=== PATIENT | male | born 1970 | race Caucasian/White ===

== ENCOUNTER → 2018-03-15 | Outpatient (CLI) | payer OTHER ==
--- NOTE | 2018-03-15 22:57 | CT ---
EXAMINATION TYPE: CT chest wo con DATE OF EXAM: 03/15/2018 COMPARISON: None at this institution. HISTORY: Spot on Lung seen on Prior exam done at [facility]. No Symptoms being felt by patient. CT DLP: 473.60 mGycm. Automated Exposure Control for Dose Reduction was Utilized. TECHNIQUE: CT scan of the thorax is performed without IV contrast. FINDINGS: LUNGS: Laterally in the left upper lobe there is 8 x 5 mm subpleural nodule or nodular consolidation axial image 17. In the right lower lobe laterally there is 5 mm groundglass nodule axial image 40. T here is no pleural effusion or pneumothorax seen. The tracheobronchial tree is patent. MEDIASTINUM: Lack of IV contrast is noted to limit evaluation for mediastinal and especially hilar ad enopathy. There are no definitive greater than 1 cm hilar or mediastinal lymph nodes. No significan t pericardial effusion is seen. Cardiomegaly is present. 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 Hounsfield units average under 0. Ascending aorta measures up to 3.5 cm in diameter. There is nodular prominence lower lobe right thyr oid coronal image 42 favoring isodense nodule measuring over 1 cm. Follow-up advised. OTHER: Please refer to same day CT abdomen report for complete details on abdomen. IMPRESSION: 1. 2 small nodules noted as detailed above. Appropriate follow-up advised as per Fleischner Society r ecommendations. 2. Advise thyroid ultrasound follow-up for suspected greater than 1 cm lower pole right thyroid nodul e. 3. Cardiomegaly somewhat prominent for patient's chronologic age. Follow-up advised if this is not kn own finding.
--- NOTE | 2018-03-16 08:28 | CT ---
EXAMINATION TYPE: CT abdomen wo/w con DATE OF EXAM: 03/15/2018 COMPARISON: None HISTORY: Abnormal Findings on other imaging done at [facility]. Attention Adrenal Glands. CT DLP: 1924.3 mGycm CONTRAST: CT scan of the abdomen and pelvis is performed with Oral Contrast and with IV Contrast, patient injec anel with 100 mL of Isovue 300. FINDINGS: LUNG BASES-: No visible nodule. No infiltrate. Mild cardiomegaly noted. LIVER/GB: No calcified gallstones. There is mild fatty hepatic infiltration. No space occupying he patic lesion. Biliary tree is of normal caliber. PANCREAS: No inflammation. No distinct mass. SPLEEN: No splenic enlargement. No lesion seen. ADRENALS: No nodule. No thickening. KIDNEYS/BLADDER: No hydronephrosis. No nephrolithiasis. No distinct renal mass. Urinary bladder g rossly unremarkable. BOWEL: Normal bowel caliber. No inflammation. LYMPH NODES: No greater than 1cm abdominal or pelvic lymph nodes are appreciated. AORTA: No significant abnormality. OSSEOUS STRUCTURES: No significant abnormality is seen. OTHER: No significant additional abnormality is seen. IMPRESSION: 1. No adrenal pathology identified. 2. Mild hepatic steatosis. 3. Mild cardiomegaly.
== END ==
LOC: RADCTMAIN 14:30
PROVIDERS: ATTEND Physician Assistant
DX: I51.7 Cardiomegaly (principal); R91.8 Other nonspecific abnormal finding of lung field
CPT/HCPCS: 71250; 74170; Q9967

== ENCOUNTER → 2018-04-15 | Outpatient (CLI) | payer OTHER ==
--- NOTE | 2018-04-16 07:06 | US ---
EXAMINATION TYPE: US thyroid st tissue head/neck DATE OF EXAM: 04/15/2018 COMPARISON: ct 2018 CLINICAL HISTORY: R93.89 Abnormal findings on diagnostic imaging of. GLAND SIZE: Right Lobe: 5.1 x 1.9 x 2.0 cm Overall Parenchyma: homogenous Left Lobe: 4.3 x 1.6 x 1.6 cm Overall Parenchyma: homogeneous Isthmus Thickness: 0.3 cm NODULES RIGHT: # of nodules measured on right: 1 1. 0.7 X 0.4 x 0.5 cm mixed nodule at the mid pole with well-defined margins; . This nodule is wid er than tall and shows no intranodular vascularity. Prior size: no prior LEFT: # of nodules measured on left: 0 ISTHMUS: # of nodules measured in the isthmus: 0 Bilateral neck scanned, no evidence of lymphadenopathy. IMPRESSION: Subcentimeter nonspecific nodule right thyroid lobe.
== END ==
LOC: RADUSWWP 16:45
PROVIDERS: ATTEND Physician Assistant
DX: E04.1 Nontoxic single thyroid nodule (principal)
CPT/HCPCS: 76536

== ENCOUNTER → 2018-04-26 | Outpatient (CLI) | payer OTHER ==
--- NOTE | 2018-04-26 08:27 | CT ---
EXAMINATION TYPE: CT chest wo con DATE OF EXAM: 04/26/2018 COMPARISON: 03/15/2018 HISTORY: 48-year-old male Follow up to prior abnormal CT TECHNIQUE: Contiguous axial scanning of the chest without IV contrast. Coronal and sagittal reconstru ctions performed. CT DLP: 421.2 mGycm Automated exposure control for dose reduction was used. FINDINGS: Heart borderline to mildly enlarged without pericardial effusion. Ascending aorta is ectatic at 3.6 cm. Conventional arch vessel branching anatomy. Scattered nonenlarged mediastinal lymph nodes are present, mildly enlarged in the AP window region me asuring 1.3 cm now versus 1.7 cm, previously. 1 cm in the right pericardiac region, unchanged from pr ior. No progressive lymphadenopathy seen allowing for noncontrast technique which limits assessment o f the hilar structures. Evaluation of the lungs redemonstrates 8 mm peripheral left upper lobe pulmonary nodule, axial image 14 with adjacent tree-in-bud opacities. Also redemonstrated is the 7 mm peripheral right basilar pulmonary nodule with also has a somewhat tr ee-in-bud appearance. No consolidation or pleural effusion. Small hiatal hernia. Fatty infiltration of the liver demonstrated by low attenuation. Small anterior splenule. Bones: No osseous destructive process. IMPRESSION: 1. A COUPLE PULMONARY NODULES MEASURING UP TO 8 MM ARE UNCHANGED FOR JUST OVER ONE MONTH. A 6 MONTH F OLLOW-UP RECOMMENDED FOR CONTINUED SURVEILLANCE. 2. THESE HAVE A SOMEWHAT TREE-IN-BUD APPEARANCE AND MAY REPRESENT INFLAMMATORY SMALL AIRWAYS IMPACTIO N SUCH FROM BRONCHIOLITIS. 3. SOME MEDIASTINAL LYMPH NODES ARE EITHER STABLE OR SLIGHTLY SMALLER MEASURING UP TO 1.3 CM IN THE A P WINDOW. THESE CAN ALSO BE REASSESSED AT FOLLOW-UP. 4. SMALL HIATAL HERNIA AND HEPATIC STEATOSIS. 5. BORDERLINE HEART SIZE REDEMONSTRATED.
== END | disposition home or self-care (01) ==
LOC: RADCTMAIN 07:19
PROVIDERS: ATTEND Physician Assistant Medical
DX: R91.8 Other nonspecific abnormal finding of lung field (principal)
CPT/HCPCS: 71250

== ENCOUNTER → 2018-06-09 | Outpatient (CLI) | payer OTHER ==
--- NOTE | 2018-06-09 15:30 | CT ---
EXAMINATION TYPE: CT chest wo con DATE OF EXAM: 06/09/2018 COMPARISON: 04/26/2018 HISTORY: Follow up for lung nodules CT DLP: 622 mGycm, Automated exposure control for dose reduction was used. CONTRAST: Performed injected with 0 mL of Isovue 300. TECHNIQUE: Axial images were obtained at 5 mm thick sections. Reconstructed images are reviewed on [employer] computer in the coronal plane. FINDINGS: Several small nodules within the periphery of the right lower lobe. Series 3 image 40. Largest measur es 0.7 cm which is stable. There is a 0.5 cm nodule within the periphery of the right midlung. Series 3 image 31. Multiple small peripheral nodules are the left upper lobe the largest measuring 0.6 cm. Series 3 image 15. There are additional punctate scattered tiny 1 to 2 mm nodules present bilaterally . No enlarged mediastinal or hilar adenopathy is evident. There are some scattered nonenlarged lymph n odes within the mediastinum. These appear diminished in size from comparison The ascending aorta diam eter at the level of the main pulmonary artery is 3.8 cm. The main pulmonary artery diameter at the bifurcation is 2.[address] sections are obtained through the upper abdomen. Abdomen is essentially unremarkable. IMPRESSIONS: 1. Multiple bilateral nodules, stable from comparison April 26, 2018. Follow-up exam in 3 months is recommended.
== END | disposition home or self-care (01) ==
LOC: RADCTMAIN 14:17
DX: R91.8 Other nonspecific abnormal finding of lung field (principal)
CPT/HCPCS: 71250

== ENCOUNTER 2020-06-05 15:44 | Emergency (ER) | payer OTHER ==
[2020-06-05 16:04] VITALS: BP 218/144; PULSE 73; RESP 16; TEMP 98.6
[2020-06-05] MEDS ORDERED: AMOXIC-POT CLAV 875-125MG 1 EACH TAB PO STA (16:19)
--- NOTE | 2020-06-05 16:20 | ED ---
Animal Bite HPI - General Chief Complaint: Animal Bite Stated Complaint: dog bite Time Seen by Provider: 06/05/20 16:10 Source: patient Mode of arrival: ambulatory Limitations: no limitations - History of Present Illness Initial Comments: 50-year-old male presents to the emergency department with chief complaint of a dog bite. States this is his dog but it is not vaccine it. States the dog is only few weeks old. His tetanus is up-to-date. Patient reports the bite site is on the right fourth digit. Patient reports minimal pain and has full range of motion of finger. Denies any numbness or tingling. - Related Data Previous Rx's Medication Instructions Recorded Amoxicillin/Potassium Clav 1 tab PO Q12HR #20 tab 06/05/20 [Augmentin 875-125 Tablet] Allergies Allergy/AdvReac Type Severity Reaction Status Date / Time No Known Allergies Allergy Verified 06/05/20 16:01 Review of Systems ROS Statement: Those systems with pertinent positive or pertinent negative responses have been documented in the HPI. ROS Other: All systems not noted in ROS Statement are negative. Past Medical History Past Medical History: Hypertension History of Any Multi-Drug Resistant Organisms: None Reported Past Surgical History: No Surgical Hx Reported Past Psychological History: No Psychological Hx Reported Smoking Status: Never smoker Past Alcohol Use History: None Reported Past Drug Use History: None Reported General Exam Limitations: no limitations General appearance: alert, in no apparent distress Head exam: Present: atraumatic, normocephalic, normal inspection Eye exam: Present: normal appearance, PERRL, EOMI Pupils: Present: normal accommodation ENT exam: Present: normal exam, normal oropharynx, mucous membranes moist Neck exam: Present: normal inspection, full ROM Respiratory exam: Present: normal lung sounds bilaterally. Absent: respiratory distress Cardiovascular Exam: Present: regular rate, normal rhythm, normal heart sounds Extremities exam: Present: full ROM, tenderness (Mild tenderness at the puncture wound site), normal capillary refill. Absent: normal inspection (Superficial Puncture wound to the palmar aspect of the right fourth digit.) Back exam: Present: normal inspection, full ROM Neurological exam: Present: alert, oriented X3 Psychiatric exam: Present: normal affect, normal mood Skin exam: Present: warm, dry, intact, normal color Course Vital Signs 06/05/20 16:01 Temperature 98.6 F Pulse Rate 73 Respiratory 16 Rate Blood Pressure 218/144 O2 Sat by Pulse 98 Oximetry Medical Decision Making - Medical Decision Making 50-year-old male presents to the emergency department with a chief complaint of a dog bite. Patient was offered rabies prophylaxis, he declined. Patient started on Augmentin emergency department. Will be discharged with 10 day course of Augmentin. The puncture site was superficial and does not affect the range of motion of his finger. He is otherwise neurovascularly intact. Return parameters discussed the patient was understanding and agreeable. Case discussed with Dr. Hancock. Disposition Clinical Impression: Bite by animal, Dog bite Disposition: HOME SELF-CARE Condition: Stable Instructions (If sedation given, give patient instructions): Animal Bite (ED) Additional Instructions: Take prescribed medication as directed. Please return to the Emergency Department if symptoms worsen or any other concerns. Prescriptions: Amoxicillin/Potassium Clav [Augmentin 875-125 Tablet] 1 tab PO Q12HR #20 tab Is patient prescribed a controlled substance at d/c from ED?: No Referrals: [facility],Clinic [Primary Care Provider] - 1-2 days Time of Disposition: 16:20
== END 2020-06-05 16:27 | disposition home or self-care (01) ==
LOC: EC 15:44
DX: S61.236A Puncture wound without foreign body of right little finger without damage to nail, initial encounter (principal); W54.0XXA Bitten by dog, initial encounter
CPT/HCPCS: 99283

== ENCOUNTER → 2020-12-06 | Outpatient (CLI) | payer OTHER ==
--- NOTE | 2020-12-06 14:13 | CONS ---
CONSULTATION DATE OF SERVICE: 12/06/2020 50-year-old gentleman has been evaluated in Sleep Center for possible obstructive sleep apnea-hypopnea syndrome and significant excessive daytime sleepiness. HISTORY OF PRESENT ILLNESS/SLEEP WAKE EVALUATION: SLEEP SCHEDULE: Patient's usual sleep schedule on weekdays varies and he gets up around 6:30 a.m. On weekends he goes to bed around 1:30 am and gets up around 6:45 am. He may have rotating shift and this also his sleep schedule. FALLING ASLEEP: Sometimes has problems with falling asleep, has TV set in bedroom. DURING SLEEP: He sleeps in different positions including back and according to his , he has twitching during the sleep. He snores and wakes up from sleep several times and 3 times he goes out of bed at night. Some of them for using restroom. No history of hypnagogic hallucinations, sleep paralysis or cataplexy. DURING THE DAY/SLEEP WAKE EVALUATION: During the day, patient feels significantly sleepy. Aldrich Sleepiness Scale is in very high range of 17, has problems with memory, concentration, irritability, claustrophobia, worry about his sleep, trying not to take naps but if he is taking a nap he may see vivid dreams during naps. PAST MEDICAL HISTORY: Positive for hypertension, back problems. PAST SURGICAL HISTORY: Only wisdom teeth removed. SOCIAL HISTORY: Negative for smoking. Alcohol consumption very rarely. FAMILY HISTORY: Positive for sleep apnea, hypertension, diabetes, cancer, narcolepsy, thyroid problems, anemia. REVIEW OF SYSTEMS: Multiple awakenings from sleep, sleepiness during the day. PHYSICAL EXAMINATION: GENERAL: A gentleman without distress. BP 159/92, HR 58, RR 15, height 5 feet 9 inches 1/2, weight 207, body mass index 30.1, temperature 98.2, oxygen saturation at room air 98%. Oropharynx: Moderately low position of soft palate, Mallampati 3. NECK: 16 inches in circumference. Neck supple, no JVD. Thyroid is not palpable. LUNGS: Clear to percussion and to auscultation. Good air exchange. No wheezing or rhonchi. HEART: S1, S2 regular. No murmurs, gallops, or rubs. ABDOMEN: Soft and nontender. Bowel sounds are present. No organomegaly appreciated. EXTREMITIES: No clubbing or cyanosis. CUSTOMS BROKER: Awake, alert, and oriented X3. Cranial nerves 2 to 7 intact. There is no fasciculation or atrophy. noted. No focal deficits observed. IMPRESSION: 1. Loud snoring, multiple awakenings from sleep, small oropharyngeal air space, significant excessive daytime sleepiness, obstructive sleep apnea-hypopnea syndrome. 2. Significant excessive daytime sleepiness with Aldrich Sleepiness Scale 17 dictate necessity to include narcolepsy without cataplexy and idiopathic hypersomnia in differential diagnosis. 3. Mild obesity, body mass index 30.1. 4. Twitching during the sleep. Rule out periodic limb movements. 5. Hypertension. 6. Back problems. PLAN: 1. Polysomnography for evaluation of patient's breathing during sleep. 2. CPAP/BiPAP titration if sleep study confirms obstructive sleep apnea-hypopnea syndrome. 3. Preferable position during sleep on the side. 4. No driving if patient feels any sleepiness. 5. I will see patient for follow up visit to explain results of testing and following plan. Thank you very much for referring this patient for consultation. Sincerely, Rosalio Sharp MD, PhD, FAASM Diplomat of [employer] Sleep Medicine Board of [employer] Manager of [facility] [place] MMODL / IJN: [id number] /
== END ==
LOC: SLEEP 13:01
PROVIDERS: ATTEND Internal Medicine
DX: G47.33 Obstructive sleep apnea (adult) (pediatric) (principal); E66.01 Morbid (severe) obesity due to excess calories; Z68.30 Body mass index [BMI] 30.0-30.9, adult; R25.3 Fasciculation; I10 Essential (primary) hypertension; M48.8X9 Other specified spondylopathies, site unspecified
CPT/HCPCS: 99211

== ENCOUNTER → 2021-09-18 | Outpatient (CLI) | payer SELFPAY ==
--- NOTE | 2021-09-18 17:33 | P.PN ---
Subjective DATE: [] FOLLOW UP VISIT. Patient with obstructive sleep apnea hypopnea syndrome return to sleep center for follow-up visit. Recently patient had sleep study which documented obstructive sleep apnea hypopnea syndrome. Patient was initiated on PAP therapy and today is first visit after treatment was started. Patient was able to use PAP equipment most of the nights. The patient does have significant discomfort with the mask. She is using full face mask feel discomfort on the breedge of his nose. No problems with PAP pressure and humidification. Beatty sleepiness scale is 18. I checked information from PAP unit. PAP unit pressure 5-10 cm H2O. Usage is about 50 % for more then 4 hours, average 4.8 hours per night. Leak is 64 l/m, which is in high range. Apnea Hypopnea Index is 2.0, which is normal. MEDICATIONS:1. Losartan During physical exam: GENERAL: A pleasant patient without any distress. VITAL SIGNS: BP 175/109, HR 67, RR 14 , weight 21 2, temperature 97.2, HEENT: PERRLA, EOMI.low position of soft palate, Mallapati 3 . NECK: Supple. No JVD. LUNGS: Clear to percussion and to auscultation. Good air exchange. No wheezing or rhonchi. HEART: S1, S2 regular. ABDOMEN: Soft and nontender.[] EXTREMITIES: No clubbing or cyanosis. DENTIST ATTENDANT: Awake, alert, and oriented x3. No focal deficit. Impressions: 1. Obstructive sleep apnea-hypopnea syndrome. Patient demonstrated great compliance with treatment, benefiting from treatment. 2. Day time sleepiness improved while on treatment with CPAP but not fully normalized. 3. Mild obesity. 4. Hypertension. 5. Back problems. Plan: 1. Continue using PAP equipment every night for the whole night. 2. To change air filter at least 1-2 times per month. 3. PAP unit should stay lower then position of the head. 4. Advised patient to remove all remaining water from humidifier canister daily and make it dry after each usage. Refill canister with fresh distilled water before each usage. 5. Sleep hygiene with regular time in bed for at least 8 hours. 6. Precautions related to driving. No driving if feel any sleepiness. 7. I will maintain prescription for PAP supplies including mask, tube, filters. 8. Follow up visit in 6 months or earlier if patient has any problems. 9. Watching weight. 10. We may consider MSLT if patient will continue to have symptoms of excessive daytime sleepiness. Thank you very much for allowing me to participate in the management of your patient. Rosalio Sharp MD, PhD, FAASM. Diplomat of [place] [employer], Sleep Medicine Board by [place] [employer] of [facility] [place]
== END ==
LOC: SLEEP 16:45
PROVIDERS: ATTEND Internal Medicine
DX: G47.33 Obstructive sleep apnea (adult) (pediatric) (principal); E66.9 Obesity, unspecified; I10 Essential (primary) hypertension; M53.80 Other specified dorsopathies, site unspecified; Z99.89 Dependence on other enabling machines and devices

== ENCOUNTER 2023-09-24 13:49 | Observation (INO) | payer OTHER ==
--- NOTE | 2023-09-24 13:59 | ED ---
Chest Pain HPI - General Source: patient, RN notes reviewed Mode of arrival: ambulatory Limitations: no limitations <Estelita Haji - Last Filed: 09/24/23 13:58> <Cesar Alves - Last Filed: 09/24/23 16:51> - General Chief Complaint: Chest Pain Stated Complaint: chest pain Time Seen by Provider: 09/24/23 13:58 - History of Present Illness Initial Comments: Quick Note: This is a 53-year-old male who presents to the emergency department for chest pain. States that it started about 30 minutes prior to arrival while he was driving. Describes this as a pressure sensation. Denies any shortness of breath associated with this. Reports a history of elevated blood pressure but denies any personal or family history of cardiac issues. (Estelita Haji) This is a 53-year-old male who presents to the emergency department complaining of chest pain. Patient states there is a pressure sensation. Patient states it still there now but is better. Patient states he has a history of hypertension he denies any diabetes or high cholesterol. Patient states he does have some distant family history. Patient denies any recent fever chills or cough patient denies any radiation of the pain patient denies any shortness of breath patient denies any diaphoretic episode. Patient denies any nausea. Patient states he was not exerting himself when this occurred however his and daughter are having quite a significant argument at the time and they were in the vehicle together. (Cesar Alves) - Related Data Home Medications Medication Instructions Recorded Confirmed Losartan Potassium [Cozaar] 100 mg PO DAILY 05/23/22 05/23/22 NIFEdipine [Adalat CC] 30 mg PO DIRECTED 05/23/22 05/23/22 Allergies Allergy/AdvReac Type Severity Reaction Status Date / Time lisinopril Allergy swelling Verified 09/24/23 16:50 of the tongue metoprolol AdvReac drops Verified 09/24/23 16:50 heart rate too low nifedipine AdvReac dizziness Verified 09/24/23 16:50 Pork/Porcine Containing AdvReac Nausea & Verified 09/24/23 16:50 Products Vomiting & Diarrhea Review of Systems ROS Other: All systems not noted in ROS Statement are negative. <Estelita Haji - Last Filed: 09/24/23 13:58> ROS Other: All systems not noted in ROS Statement are negative. <Cesar Alves - Last Filed: 09/24/23 16:51> ROS Statement: Those systems with pertinent positive or pertinent negative responses have been documented in the HPI. Past Medical History Past Medical History: Hypertension History of Any Multi-Drug Resistant Organisms: None Reported Past Surgical History: No Surgical Hx Reported Past Psychological History: PTSD Smoking Status: Never smoker Past Alcohol Use History: None Reported Past Drug Use History: None Reported <Estelita Haji - Last Filed: 09/24/23 13:58> General Exam Limitations: no limitations <Estelita Haji - Last Filed: 09/24/23 13:58> <Cesar Alves - Last Filed: 09/24/23 16:51> - General Exam Comments Initial Comments: Visual Physical Exam Vital signs reviewed General: Well-appearing, nontoxic, no acute distress. Head: Normocephalic, atraumatic Eyes: PERRLA, EOMI ENT: Airway patent Chest: Nonlabored breathing Skin: No visual rash, normal skin tone Neuro: Alert and oriented 3 Musculoskeletal: No gross abnormalities (Estelita Haji) GENERAL: Patient is well-developed and well-nourished. Patient is nontoxic and well- hydrated and is in mild distress. ENT: Neck is soft and supple. No significant lymphadenopathy is noted. Oropharynx is clear. Moist mucous membranes. Neck has full range of motion without eliciting any pain. EYES: The sclera were anicteric and conjunctiva were pink and moist. Extraocular movements were intact and pupils were equal round and reactive to light. Eyelids were unremarkable. PULMONARY: Unlabored respirations. Good breath sounds bilaterally. No audible rales rhonchi or wheezing was noted. CARDIOVASCULAR: There is a regular rate and rhythm without any murmurs gallops or rubs. ABDOMEN: Soft and nontender with normal bowel sounds. SKIN: Skin is clear with no lesions or rashes and otherwise unremarkable. NEUROLOGIC: Patient is alert and oriented x3. Cranial nerves II through XII are grossly intact. Motor and sensory are also intact. Normal speech, volume and content. Symmetrical smile. MUSCULOSKELETAL: Normal extremities with adequate strength and full range of motion. LYMPHATICS: No significant lymphadenopathy is noted PSYCHIATRIC: Normal psychiatric evaluation. (Cesar Alves) Course Vital Signs 09/24/23 09/24/23 13:53 15:02 Temperature 97.9 F Pulse Rate 75 54 L Respiratory 16 18 Rate Blood Pressure 210/123 162/89 O2 Sat by Pulse 99 98 Oximetry Chest Pain MDM <Estelita Haji - Last Filed: 09/24/23 13:58> <Cesar Alves - Last Filed: 09/24/23 16:51> - [facility] I performed the QuickNote portion of this chart. Signed Estelita Haji PA-C. (Estelita Haji) EKG is interpreted by myself. EKG shows a sinus rhythm at 67 bpm MA interval 168 QRS is 91 QT interval is 384 QTc is 399. Patient's EKG shows no ST segment elevation or depression. Was pt. sent in by a medical professional or institution ([facility], SALES INCENTIVE ANALYST, urgent care, hospital, or [facility]...) When possible be specific @ -No Did you speak to anyone other than the patient for history (EMS, parent, family, police, friend...)? What history was obtained from this source @ -No Did you review nursing and triage notes (agree or disagree)? Why? @ -I reviewed and agree with nursing and triage notes Were old charts reviewed (outside hosp., previous admission, EMS record, old EKG, old radiological studies, urgent care reports/EKG's, [facility] records)? Report findings @ -No old charts were reviewed Differential Diagnosis (chest pain, altered mental status, abdominal pain women, abdominal pain men, vaginal bleeding, weakness, fever, dyspnea, syncope, headache, dizziness, GI bleed, back pain, seizure, CVA, palpatations, mental he alth, musculoskeletal)? @ -Differential Chest Pain: Stable Angina, Unstable Angina, STEMI, NSTEMI Aortic Dissection, Pneumothorax, Musculoskeletal, Esophageal Spasm GERD, Cholecystitis, Pancreatitis, Zoster, this is not meant to be an all-inclusive list. EKG interpreted by me (3pts min.). @ -As above X-rays interpreted by me (1pt min.). @ -Chest x-ray shows no acute normality CT interpreted by me (1pt min.). @ -None done U/S interpreted by me (1pt. min.). @ -None done What testing was considered but not performed or refused? (CT, X-rays, U/S, labs)? Why? @ -None What meds were considered but not given or refused? Why? @ -None Did you discuss the management of the patient with other professionals (professionals i.e. , PA, SALES INCENTIVE ANALYST, lab, RT, psych nurse, adoption social worker, immigration lawyer, teacher, complaint investigations officer, case management coordinator)? Give summary @ -I spoke with Dr. Ellison he agreed to admit the patient admit the patient recommending orders Was smoking cessation discussed for >3mins.? @ -No Was critical care preformed (if so, how long)? @ -No Were there social determinants of health that impacted care today? How? (Homelessness, low income, unemployed, alcoholism, drug addiction, transportation, low edu. Level, literacy, decrease access to med. care, longterm, rehab)? @ -No Was there de-escalation of care discussed even if they declined (Discuss DNR or withdrawal of care, Hospice)? DNR status @ -No What co-morbidities impacted this encounter? (DM, HTN, Smoking, COPD, CAD, Cancer, CVA, ARF, Chemo, Hep., AIDS, mental health diagnosis, sleep apnea, morbid obesity)? @ -None Was patient admitted / discharged? Hospital course, mention meds given and route, prescriptions, significant lab abnormalities, going to OR and other pertinent info. @ -Patient had chest pain approximately half an hour prior to arrival he was given nitroglycerin and it did relieve his pain however to give him a headache. I spoke to the patient he did want to stay and see cardiology. Spoke with Dr. Ellison and he agreed to admit the patient admit the patient will be nursing consulted cardiology Undiagnosed new problem with uncertain prognosis? @ -No Drug Therapy requiring intensive monitoring for toxicity (Heparin, Nitro, Insulin, Cardizem)? @ -No Were any procedures done? @ -No Diagnosis/symptom? @ -Chest pain Acute, or Chronic, or Acute on Chronic? @ -Acute Uncomplicated (without systemic symptoms) or Complicated (systemic symptoms)? @ -Complicated Side effects of treatment? @ -No Exacerbation, Progression, or Severe Exacerbation? @ -No Poses a threat to life or bodily function? How? (Chest pain, USA, SD, pneumonia, PE, COPD, DKA, ARF, appy, cholecystitis, CVA, Diverticulitis, Homicidal, Suicidal, threat to staff... and all critical care pts) @ -Yes this could lead to an SD and endorgan dysfunction Repeat EKG was done and the patient was brought back to room. EKG was interpreted by myself. EKG showed a sinus bradycardia 49 bpm parables 146 QRS is 90 QT interval is 432 QTc is 402. Patient's EKG shows no ST segment ovation or depression. (Cesar Alves) Disposition <Estelita Haji - Last Filed: 09/24/23 13:58> Time of Disposition: 15:38 <Cesar Alves - Last Filed: 09/24/23 16:51> Clinical Impression: Chest pain Disposition: ADMITTED IP TO THIS HOSP
[2023-09-24 14:17] LABS: Basophils % (A) 1 %; Eosinophils # (A) 0.1 k/uL (0-0.7); Eosinophils % (A) 2 %; HCT 44.6 % (39.0-53.0); HGB 14.6 gm/dL (13.0-17.5); Lymphocytes # (A) 1.4 k/uL (1.0-4.8); Lymphocytes % (A) 21 %; MCH 29.6 pg (25.0-35.0); MCHC 32.7 g/dL (31.0-37.0); MCV 90.7 fL (80.0-100.0); Mean Platelet Volume 9.1; Monocytes # (A) 0.4 k/uL (0-1.0); Monocytes % (A) 6 %; Neutrophils # (A) 4.5 k/uL (1.3-7.7); Neutrophils % (A) 69 %; Platelet Count 160 k/uL (150-450); RBC 4.92 m/uL (4.30-5.90); RDW 13.3 % (11.5-15.5); WBC 6.4 k/uL (3.8-10.6)
[2023-09-24] MEDS: NITROGLYCERIN SL TABS 0.4 MG TAB SUBLINGUAL STA (14:18)
[2023-09-24] MEDS: ASPIRIN 81 MG PO STA (14:18)
[2023-09-24] MEDS: NITROGLYCERIN OINT 1 INCH/GM PACKET TOPICAL STA (14:18)
[2023-09-24 14:28] LABS: Partial Thromboplastin Time 24.3 sec (22.0-30.0); Prothrombin Time 11.3 sec (10.0-12.5)
[2023-09-24 14:39] LABS: ALT 27 U/L (4-49); AST 35 U/L (17-59); African American GFR (CKD) 84 (>60 ml/min/1.73 sqM); Albumin 4.3 g/dL (3.5-5.0); Alkaline Phosphatase 54 U/L (38-126); Anion Gap 5 mmol/L; Blood Urea Nitrogen 19 mg/dL (9-20); Calcium 8.9 mg/dL (8.4-10.2); Carbon Dioxide 24 mmol/L (22-30); Chloride 108 mmol/L (98-107); Glucose 100 mg/dL (74-99); Non-African American GFR(CKD) 73 (>60 ml/min/1.73 sqM); Sodium 137 mmol/L (137-145); Total Bilirubin 0.8 mg/dL (0.2-1.3); Total Protein 7.3 g/dL (6.3-8.2)
--- NOTE | 2023-09-24 14:45 | XR ---
EXAMINATION TYPE: XR chest 2V DATE OF EXAM: 09/24/2023 COMPARISON: 05/23/2022 TECHNIQUE: PA and lateral views submitted. HISTORY: Chest pain FINDINGS: The lungs are clear and there is no pneumothorax, pleural effusion, or focal pneumonia. Heart size normal and no overt failure. AC joint arthropathy. Tiny 2 mm nodule right upper lobe too small to luigi racterize. There is a somewhat nodular density left retrocardiac area and felt to be related to super imposed structures. Short-term follow-up chest x-ray recommended.. IMPRESSION: 1. No acute process. Short-term follow-up x-ray recommended to confirm an area of nodular density in the left retrocardiac region most likely related to superimposed structures.
[2023-09-24 14:49] LABS: Potassium 4.5 mmol/L (3.5-5.1)
[2023-09-24] MEDS ORDERED: NITROGLYCERIN SL TABS 0.4 MG TAB SUBLINGUAL PRN (15:38)
[2023-09-24] MEDS ORDERED: FLUTICASONE 50MCG/SPRAY NASAL 16GM EA NOSTRIL PRN (18:01)
--- NOTE | 2023-09-24 18:04 | P.HPIM ---
History of Present Illness H&P Date: 09/24/23 Chief Complaint: Chest pain 51-year-old male with medical history of hypertension presented for evaluation of chest pain. Patient says that he started to feel chest pressure today and noticed that his blood pressure was high. He came to the emergency room when this did not improve. He does not notice any association with exertion, position, food intake. He was able to walk for a total of 6 hours within the week without any symptoms of angina, dyspnea. He denies fevers, chills, nausea, vomiting, sweats, palpitations. He denies previous history of heart attacks or strokes, previous early family history of heart attacks or strokes. He does not smoke, he only occasionally drinks, he does not use recreational drugs. In the emergency room, patient was afebrile, 210/123, heart rate 75, 99% on room air. Patient was given a single dose of sublingual nitroglycerin which she reported relieved his chest pressure but also gave him a headache after noticing that his blood pressure dropped from 210 systolic to 162 systolic. CBC was unremarkable. Basic metabolic panel showed creatinine of 1.16. Liver function test were unremarkable. Troponin was less than 0.012. Coags are unremarkable. EKG shows sinus rhythm with LVH, no evidence of ischemia. Chest x-ray shows clear parenchyma bilaterally, normal-sized heart. All Systems reviewed and pertinent positives and negatives noted in HPI, all other symptoms are negative Gen: in no apparent distress, resting comfortably in bed Eyes: PERRL, no scleral injection or icterus HENT: normocephalic, atraumatic, good hearing acuity, moist mucous membranes Neck: no tracheal deviation, full range of motion Resp: good air exchange, breathing comfortably with no accessory muscle use, no tactile fremitus, clear to auscultation bilaterally, clear to auscultation bilaterally present CVS: good distal perfusion x 4, no pitting edema, regular rate and rhythm without murmurs GI: soft, NTTP, ND, no hepatosplenomegaly : no suprapubic tenderness, no CVAT, wilson catheter not, MSK: no clubbing, no cyanosis, no noted contractures of extremities Skin: no noted rashes, petechiae; temperature of skin is appropriate Neuro: moving all extremities without signs of weakness, CN II-XII intact Psych: cooperative, euthymic mood, insight and judgment intact Labs and imaging as above Assessment/plan: Hypertensive urgency Chest pressure -Admit to observation -Cardiology consult -trend troponins -EKG, nitro as needed for chest pain -Lipid panel, A1c, TSH -Aspirin, statin -Initiate amlodipine, lisinopril -Obtain UA -Echocardiogram pending Pt is Full Code Past Medical History Past Medical History: Hypertension History of Any Multi-Drug Resistant Organisms: None Reported Past Surgical History: No Surgical Hx Reported Past Psychological History: PTSD Smoking Status: Never smoker Past Alcohol Use History: None Reported Past Drug Use History: None Reported Medications and Allergies Home Medications Medication Instructions Recorded Confirmed Type Losartan Potassium [Cozaar] 100 mg PO DAILY 05/23/22 09/24/23 History Acetaminophen [Tylenol] 650 mg PO TID PRN MDD 1,950 mg 09/24/23 09/24/23 History Aspirin EC [Ecotrin Low Dose] 81 mg PO DAILY 09/24/23 09/24/23 History Fluticasone Nasal [place] [Flonase 1 spray EA NOSTRIL DAILY PRN 09/24/23 09/24/23 History Nasal [place]] Loratadine 10 mg PO DAILY PRN 09/24/23 09/24/23 History Allergies Allergy/AdvReac Type Severity Reaction Status Date / Time lisinopril Allergy swelling Verified 09/24/23 16:50 of the tongue metoprolol AdvReac drops Verified 09/24/23 16:50 heart rate too low nifedipine AdvReac dizziness Verified 09/24/23 16:50 Pork/Porcine Containing AdvReac Nausea & Verified 09/24/23 16:50 Products Vomiting & Diarrhea Physical Exam Osteopathic Statement: *. No significant issues noted on an osteopathic structural exam other than those noted in the History and Physical/Consult. Vitals: Vital Signs Temp Pulse Resp BP Pulse Ox 09/24/23 15:02 54 L 18 162/89 98 09/24/23 13:53 97.9 F 75 16 210/123 99 Intake and Output 09/24/23 09/24/23 09/24/23 06:59 14:59 22:59 Other: Weight 97.976 kg Results CBC & Chem 7: 09/24/23 14:08 09/24/23 14:08 Labs: Abnormal Lab Results - Last 24 Hours (Table) 06/13/24 Range/Units 14:08 Chloride 108 H (98-107) mmol/L Glucose 100 H (74-99) mg/dL
[2023-09-24] MEDS: NITROGLYCERIN OINT 1 INCH/GM PACKET TOPICAL SCH (18:05)
[2023-09-24] MEDS: ATORVASTATIN 80 MG TAB PO SCH (20:16)
[2023-09-24] MEDS: ACETAMINOPHEN TAB 500 MG TAB PO STA (20:20)
[2023-09-25] MEDS ORDERED: LOSARTAN 50 MG TAB PO SCH (09:00)
[2023-09-25] MEDS ORDERED: ASPIRIN 325 MG TAB PO SCH (09:00)
--- NOTE | 2023-09-25 09:22 | P.CRDCN ---
History of Present Illness History of present illness: This is Dr. Parikh dictating an H/P on this patient The patient was interviewed and examined IMPRESSION / ASSESSMENT: Uncontrolled hypertension, hypertensive urgency despite being on losartan No clear triggering factors Normal potassium Known obstructive sleep apnea using a CPAP mask No evidence for myocardial injury or infarction PLAN: Change to valsartan 160 mg twice daily Monitor for 24 hours If his blood pressure has improved he may go home tomorrow and follow-up with his primary care physician at the [place] Reassessment of blood pressure after 1 to 2 weeks of being on valsartan If his blood pressure is still not controlled then consider adding hydrochlorothiazide and or amlodipine and a workup for secondary hypertension HPI Patient presents with chest discomfort and headache His blood pressure was found to be very high Known history of hypertension blood pressure occasionally does get high on losartan 100 mg p.o. daily. He is compliant with his medications account with the patient Denies any binge drinking alcohol use or any salt indiscretion Twelve-lead EKG normal ST segments no evidence for ischemia LVH noted ROS: No fever chills or rigors, no cough, phlegm or expectoration, no nausea, vomiting or diarrhea, no hematuria, dysuria, no musculoskeletal complaints, no strokes or seizures, no skin lesions. EXAMINATION: Normal heart sounds Normal breath sounds Elevated blood pressure No JVD Looks comfortable in no distress REVIEW OF LABS, ECG & MEDICAL DATA Cardiac enzymes are normal electrolytes are normal and BUN/creatinine normal Past Medical History Past Medical History: Hypertension Additional Past Medical History / Comment(s): PTSD, tinnitis History of Any Multi-Drug Resistant Organisms: None Reported Past Surgical History: No Surgical Hx Reported Past Anesthesia/Blood Transfusion Reactions: No Reported Reaction Past Psychological History: PTSD Smoking Status: Never smoker Past Alcohol Use History: None Reported Past Drug Use History: None Reported - Past Family History Mother Family Medical History: Diabetes Mellitus Additional Family Medical History / Comment(s): type 2 Father Additional Family Medical History / Comment(s): chrons, graves, psiliac disease, smoker, alcoholic Medications and Allergies Home Medications Medication Instructions Recorded Confirmed Type Losartan Potassium [Cozaar] 100 mg PO DAILY 05/23/22 09/24/23 History Acetaminophen [Tylenol] 650 mg PO TID PRN MDD 1,950 mg 09/24/23 09/24/23 History Aspirin EC [Ecotrin Low Dose] 81 mg PO DAILY 09/24/23 09/24/23 History Fluticasone Nasal [place] [Flonase 1 spray EA NOSTRIL DAILY PRN 09/24/23 09/24/23 History Nasal [place]] RX: Loratadine 10 mg PO DAILY PRN 09/24/23 09/24/23 History Allergies Allergy/AdvReac Type Severity Reaction Status Date / Time lisinopril Allergy swelling Verified 09/24/23 16:50 of the tongue metoprolol AdvReac drops Verified 09/24/23 16:50 heart rate too low nifedipine AdvReac dizziness Verified 09/24/23 16:50 Pork/Porcine Containing AdvReac Nausea & Verified 09/24/23 16:50 Products Vomiting & Diarrhea Physical Exam Vitals: Vital Signs Temp Pulse Pulse Pulse Resp BP BP 09/25/23 07:00 97.9 F 52 L 18 144/90 09/25/23 02:57 51 L 17 09/25/23 02:24 98.1 F 51 L 17 138/77 09/24/23 21:33 97.7 F 42 L 17 166/86 09/24/23 20:35 54 L 18 186/98 09/24/23 20:16 42 L 17 09/24/23 15:02 54 L 18 162/89 09/24/23 13:53 97.9 F 75 16 210/123 Pulse Ox 09/25/23 07:00 97 09/25/23 02:57 09/25/23 02:24 98 09/24/23 21:33 96 09/24/23 20:35 97 09/24/23 20:16 09/24/23 15:02 98 09/24/23 13:53 99 Intake and Output 09/24/23 09/25/23 09/25/23 22:59 06:59 14:59 Other: Voiding Method Toilet Toilet # Voids 1 1 Weight 97.976 kg Results 09/24/23 14:08 09/24/23 14:08 Cardiac Enzymes 09/24/23 09/24/23 09/24/23 Range/Units 14:08 14:08 17:13 AST 35 (17-59) U/L Troponin I <0.012 <0.012 (0.000-0.034) ng/mL 09/24/23 Range/Units 19:54 AST (17-59) U/L Troponin I <0.012 (0.000-0.034) ng/mL Coagulation 09/24/23 Range/Units 14:08 PT 11.3 (10.0-12.5) sec APTT 24.3 (22.0-30.0) sec CBC 09/24/23 Range/Units 14:08 WBC 6.4 (3.8-10.6) k/uL RBC 4.92 (4.30-5.90) m/uL Hgb 14.6 (13.0-17.5) gm/dL Hct 44.6 (39.0-53.0) % Plt Count 160 (150-450) k/uL Comprehensive Metabolic Panel 09/24/23 Range/Units 14:08 Sodium 137 (137-145) mmol/L Potassium 4.5 (3.5-5.1) mmol/L Chloride 108 H (98-107) mmol/L Carbon Dioxide 24 (22-30) mmol/L BUN 19 (9-20) mg/dL Creatinine 1.16 (0.66-1.25) mg/dL Glucose 100 H (74-99) mg/dL Calcium 8.9 (8.4-10.2) mg/dL AST 35 (17-59) U/L ALT 27 (4-49) U/L Alkaline Phosphatase 54 (38-126) U/L Total Protein 7.3 (6.3-8.2) g/dL Albumin 4.3 (3.5-5.0) g/dL Current Medications Generic Name Dose Route Start Last Admin Trade Name Freq PRN Reason Stop Dose Admin Aspirin 81 mg 09/25/23 09:00 Aspirin 81 Mg PO DAILY HERMAN Atorvastatin Calcium 80 mg 09/24/23 21:00 09/24/23 20:16 Atorvastatin 80 Mg Tab PO 80 mg HS HERMAN Administration Fluticasone Propionate 1 spray 09/24/23 18:01 Fluticasone 50mcg/[place] Nasal 16gm EA NOSTRIL DAILY PRN Allergy Symptoms Nitroglycerin 0.4 mg 09/24/23 15:38 Nitroglycerin Sl Tabs 0.4 Mg Tab SUBLINGUAL Q5M PRN Chest Pain Valsartan 160 mg 09/25/23 09:00 Valsartan 160 Mg Tab PO BID HERMAN Intake and Output 09/24/23 09/25/23 09/25/23 22:59 06:59 14:59 Other: Voiding Method Toilet Toilet # Voids 1 1 Weight 97.976 kg 09/24/23 14:08 09/24/23 14:08
[2023-09-25] MEDS: ASPIRIN 81 MG PO SCH (10:02)
[2023-09-25] MEDS: VALSARTAN 160 MG TAB PO SCH (10:02)
[2023-09-25 10:32] LABS: Basophils # (A) 0.04 X 10*3/uL (0.00-0.10); Basophils % (A) 0.6 %; Eosinophils # (A) 0.08 X 10*3/uL (0.04-0.35); Eosinophils % (A) 1.3 %; HCT 45.2 % (39.6-50.0); Lymphocytes # (A) 1.42 X 10*3/uL (0.90-5.00); Lymphocytes % (A) 22.2 %; MCHC 33.2 g/dL (32.0-37.0); MCV 90.4 FL (80.0-97.0); Mean Platelet Volume 11.8 FL (9.5-12.2); Monocytes # (A) 0.49 X 10*3/uL (0.20-1.00); Monocytes % (A) 7.7 %; NRBC Per 100 WBC 0 X 10*3/uL (0.00-0.01); Neutrophils # (A) 4.33 X 10*3/uL (1.80-7.70); Neutrophils % (A) 67.7 %; Platelet Count 164 X 10*3/uL (140-440); RDW 12.8 % (11.5-14.5); WBC 6.39 X 10*3/uL (4.50-10.00)
[2023-09-25 10:44] LABS: BUN/Creat Ratio 13.25 Ratio (12.00-20.00); Blood Urea Nitrogen 15.9 mg/dL (9.0-27.0); Calcium 8.9 mg/dL (8.7-10.3); Carbon Dioxide 24.5 mmol/L (21.6-31.8); Chloride 106 mmol/L (96-109); Chol/HDL Ratio 3.98 Ratio; Glucose 98 mg/dL (70-110); LDL Cholesterol,Calculated 99.7 mg/dL (0.0-131.0); Potassium 4.3 mmol/L (3.5-5.5); Sodium 141 mmol/L (135-145); VLDL Calculation 19.34 mg/dL (5.00-40.00)
--- NOTE | 2023-09-25 11:18 | CA ---
Transthoracic Echo Report Name: Guillermo Douglass Age: 53 Gender: M : 1970 Exam Date: 09/25/2023 07:37 Exam Location: [facility] Ht (in): 69 Wt (lb): 216 Ordering Physician: Ubaldo Ellison MD Attending/Referring Phys: Biomedical Engineering Director Sadia Morales RDCS Procedure CPT: Indications: htn urgency Cardiac Hx: Technical Quality: Good Contrast 1: Total Dose (mL): Contrast 2: Total Dose (mL): MEASUREMENTS (Male / Female) Normal Values 2D ECHO LV Diastolic Diameter PLAX 4.7 cm 4.2 - 5.9 / 3.9 - 5.3 cm LV Systolic Diameter PLAX 3.8 cm IVS Diastolic Thickness 1.4 cm 0.6 - 1.0 / 0.6 - 0.9 cm LVPW Diastolic Thickness 1.5 cm 0.6 - 1.0 / 0.6 - 0.9 cm LV Relative Wall Thickness 0.6 RV Internal Dim ED PLAX 3.1 cm LA Volume 64.5 cm??? 18 - 58 / 22 - 52 cm??? LA Volume Index 29.1 cm???/m??? 16 - 28 cm???/m??? M-MODE Aortic Root Diameter MM 3.6 cm LA Systolic Diameter MM 2.9 cm LA Ao Ratio MM 0.8 DOPPLER AV Peak Velocity 149.6 cm/s AV Peak Gradient 8.9 mmHg AV Mean Gradient 4.6 mmHg AV Velocity Time Integral 36.6 cm Mitral E Point Velocity 80.4 cm/s Mitral A Point Velocity 69.9 cm/s Mitral E to A Ratio 1.1 MV Deceleration Time 221.6 ms TR Peak Velocity 233.2 cm/s TR Peak Gradient 21.8 mmHg Right Ventricular Systolic Press 30.3 mmHg FINDINGS Left Ventricle Left ventricular ejection fraction is estimated at 55-60 %. Left ventricular cavity size normal. Moderate concentric left ventricular hypertrophy. No obvious regional wall motion abnormalities. Right Ventricle Normal right ventricular size and function. Right ventricular systolic pressure within normal limits. Right Atrium Normal right atrial size. No right atrial thrombus or mass seen. Left Atrium Mildly increased left atrial volume. No left atrial thrombus or mass present. Mitral Valve Structurally normal mitral valve. Mild mitral regurgitation. No evidence for mitral valve prolapse. No mitral stenosis. Aortic Valve Trileaflet aortic valve. No aortic valve stenosis or regurgitation. Tricuspid Valve Structurally normal tricuspid valve. Mild tricuspid regurgitation. Pulmonic Valve Structurally normal pulmonic valve. Trace pulmonic regurgitation. Pericardium No pericardial or pleural effusion. Aorta Normal size aortic root and proximal ascending aorta. CONCLUSIONS Preserved LV size and systolic function Previewed by: Dr. Alberto Parikh MD (Electronically Signed) Final Date: 25 September 2023 11:17
--- NOTE | 2023-09-25 11:20 | P.PN ---
Subjective Progress Note Date: 09/25/23 No new complaints today. BP, chest pressure, and VARELA better controlled. Gen: in no apparent distress, resting comfortably in bed Eyes: PERRL, no scleral injection or icterus HENT: normocephalic, atraumatic, good hearing acuity, moist mucous membranes Neck: no tracheal deviation, full range of motion Resp: good air exchange, breathing comfortably with no accessory muscle use, no tactile fremitus, clear to auscultation bilaterally, clear to auscultation bilaterally present CVS: good distal perfusion x 4, no pitting edema, regular rate and rhythm without murmurs GI: soft, NTTP, ND, no hepatosplenomegaly : no suprapubic tenderness, no CVAT, wilson catheter not, MSK: no clubbing, no cyanosis, no noted contractures of extremities Skin: no noted rashes, petechiae; temperature of skin is appropriate Neuro: moving all extremities without signs of weakness, CN II-XII intact Psych: cooperative, euthymic mood, insight and judgment intact Hospital Course: 51-year-old male with medical history of hypertension presented for evaluation of chest pain. In the emergency room, patient was afebrile, 210/123, heart rate 75, 99% on room air. Patient was given a single dose of sublingual nitroglycerin which she reported relieved his chest pressure but also gave him a headache after noticing that his blood pressure dropped from 210 systolic to 162 systolic. CBC was unremarkable. Basic metabolic panel showed creatinine of 1.16. Liver function test were unremarkable. Troponin was less than 0.012. Coags are unremarkable. EKG shows sinus rhythm with LVH, no evidence of ischemia. Chest x-ray shows clear parenchyma bilaterally, normal-sized heart. Assessment/plan: Hypertensive urgency Chest pressure -Admit to observation -Cardiology consult -trend troponins -EKG, nitro as needed for chest pain -Lipid panel = LDL 99.7, A1c, TSH = 1.9 -Aspirin, statin -Initiate amlodipine -losartan changed to valsartan by cardiology -Obtain UA Pt is Full Code Objective - Vital Signs Vital signs: Vital Signs Temp 97.9 F 09/25/23 07:00 Pulse 51 L 09/25/23 08:00 Resp 18 09/25/23 08:00 BP 144/90 09/25/23 07:00 Pulse Ox 97 09/25/23 07:00 FiO2 Intake & Output 09/24/23 09/25/23 09/25/23 18:59 06:59 18:59 Weight 97.976 kg Other: Voiding Method Toilet Toilet # Voids 1 - Labs CBC & Chem 7: 09/25/23 07:15 09/25/23 07:15 Labs: Abnormal Lab Results - Last 24 Hours (Table) 09/24/23 Range/Units 14:08 Chloride 108 H (98-107) mmol/L Glucose 100 H (74-99) mg/dL
[2023-09-25 12:24] LABS: Appearance,Urine Clear (Clear); Bilirubin,Urine Negative (Negative); Blood,Urine Negative (Negative); Color,Urine Colorless; Glucose,Urine (UA) Negative (Negative); Ketones,Urine Negative (Negative); Leukocyte Esterase,Urine Negative (Negative); Nitrite,Urine Negative (Negative); Protein,Urine Negative (Negative); Urobilinogen,Urine <2.0 mg/dL (<2.0)
--- NOTE | 2023-09-25 13:45 | P.DS ---
Providers Date of admission: 09/24/23 15:54 Expected date of discharge: 09/25/23 Attending physician: Ubaldo Ellison MD Consults: 09/24/23 15:38 Consult Physician Urgent Consulting Provider: [facility] Consult Reason/Comments: Chest pain Do you want consulting provider notified?: Yes Primary care physician: [facility] Hospital Course: Hypertensive urgency Chest pressure Gen: in no apparent distress, resting comfortably in bed Eyes: PERRL, no scleral injection or icterus HENT: normocephalic, atraumatic, good hearing acuity, moist mucous membranes Neck: no tracheal deviation, full range of motion Resp: good air exchange, breathing comfortably with no accessory muscle use, no tactile fremitus, clear to auscultation bilaterally, clear to auscultation b ilaterally present CVS: good distal perfusion x 4, no pitting edema, regular rate and rhythm without murmurs GI: soft, NTTP, ND, no hepatosplenomegaly : no suprapubic tenderness, no CVAT, wilson catheter not, MSK: no clubbing, no cyanosis, no noted contractures of extremities Skin: no noted rashes, petechiae; temperature of skin is appropriate Neuro: moving all extremities without signs of weakness, CN II-XII intact Psych: cooperative, euthymic mood, insight and judgment intact Hospital Course: 51-year-old male with medical history of hypertension presented for evaluation of chest pain. In the emergency room, patient was afebrile, 210/123, heart rate 75, 99% on room air. Patient was given a single dose of sublingual nitroglycerin which she reported relieved his chest pressure but also gave him a headache after noticing that his blood pressure dropped from 210 systolic to 162 systolic. CBC was unremarkable. Basic metabolic panel showed creatinine of 1.16. Liver function test were unremarkable. Troponin was less than 0.012. Coags are unremarkable. EKG shows sinus rhythm with LVH, no evidence of ischemia. Chest x-ray shows clear parenchyma bilaterally, normal-sized heart. Patient was seen in consultation with cardiology who did an echocardiogram which showed moderate concentric left ventricular hypertrophy, normal ejection fraction, no wall motion abnormality. Patient's UA was negative for proteinuria. Troponins trended negative. Patient's lipid panel demonstrated LDL of 99.7, TSH was 1.9. Cardiology recommended monitoring the patient for total 24 hours, he was subsequently discharged home with instructions to follow- up with primary care doctor for further management of blood pressure medication. A new prescription for valsartan 160 mg twice daily was sent to his pharmacy. I spent 34 minutes coordinating this discharge \ Patient Condition at Discharge: Good Plan - Discharge Summary New Discharge Prescriptions: New Valsartan [Diovan] 160 mg PO BID #60 tab Continue Acetaminophen [Tylenol] 650 mg PO TID PRN MDD 1,950 mg PRN Reason: Pain Loratadine 10 mg PO DAILY PRN PRN Reason: Allergy Symptoms Fluticasone Nasal [place] [Flonase Nasal [place]] 1 spray EA NOSTRIL DAILY PRN PRN Reason: Allergy Symptoms Aspirin EC [Ecotrin Low Dose] 81 mg PO DAILY Discontinued Losartan Potassium [Cozaar] 100 mg PO DAILY Discharge Medication List Acetaminophen [Tylenol] 650 mg PO TID PRN MDD 1,950 mg 09/24/23 [History] Aspirin EC [Ecotrin Low Dose] 81 mg PO DAILY 09/24/23 [History] Fluticasone Nasal [place] [Flonase Nasal [place]] 1 spray EA NOSTRIL DAILY PRN 09/24/23 [History] Loratadine 10 mg PO DAILY PRN 09/24/23 [History] Valsartan [Diovan] 160 mg PO BID #60 tab 09/25/23 [Rx] Follow up Appointment(s)/Referral(s): [facility],Clinic [Primary Care Provider] - 1-2 days Discharge Disposition: HOME SELF-CARE
[2023-09-25 13:50] VITALS: BP 152/87; PULSE 53; RESP 16; TEMP 98.4
== END 2023-09-25 14:04 | disposition home or self-care (01) ==
LOC: EC 13:49 → 6NMEDSUR 15:54
PROVIDERS: ADMIT Internal Medicine; ATTEND Internal Medicine
DX: I16.0 Hypertensive urgency (principal); I10 Essential (primary) hypertension; G47.33 Obstructive sleep apnea (adult) (pediatric); Z79.899 Other long term (current) drug therapy; Z79.82 Long term (current) use of aspirin
CPT/HCPCS: 99285; 36415; 93005; 93306; 80061; 80053; 80048; 84443; 83735 ×2; 84484; 85025 ×2; 85610; 85730; 81003; 83036; 71046; G0378 ×2

== ENCOUNTER → 2024-04-15 | Outpatient (CLI) | payer OTHER ==
--- NOTE | 2024-04-15 19:18 | US ---
EXAMINATION TYPE: US thyroid st tissue head/neck DATE OF EXAM: 04/15/2024 COMPARISON: Prior ultrasound 2019 CLINICAL INDICATION: Male, 54 years old with history of E04.1 THYROID NODULE; nodule TECHNIQUE: Grayscale and color Doppler imaging of the thyroid gland. FINDINGS: GLAND SIZE: Right Lobe: 5.1x1.6x2.1cm Overall Parenchyma: homogeneous Left Lobe: 4.5x2.1x1.6cm Overall Parenchyma: homogeneous Isthmus Thickness: 0.5cm NODULES RIGHT: # of nodules measured on right: 1 1. 0.7 0.5 x 0.6 cm, upper lateral, solid or almost completely solid, hypoechoic nodule, which is w ider than tall, with smooth margins, without echogenic foci. Prior size: 0.7 x 0.4 x 0.5 cm LEFT: # of nodules measured on left: 0 ISTHMUS: # of nodules measured in the isthmus: 0 Bilateral neck scanned, no evidence of lymphadenopathy. IMPRESSION: Normal-sized thyroid with stable subcentimeter right-sided thyroid nodule. No new or enlarging nodule s. 2017 ACR TI-RADS LEVEL: TR-RADS 4 - Moderately Suspicious: Follow if > 1 cm, FNA if > 1.5 cm *Highest TI-RADS level nodule reported [email or web address] [email or web address], , 04/15/2024 7:16 PM
== END | disposition home or self-care (01) ==
LOC: RADUSWWP 14:09
PROVIDERS: ATTEND Family Medicine
DX: E04.1 Nontoxic single thyroid nodule (principal)
CPT/HCPCS: 76536